=== PATIENT | female | born 1995 | race Caucasian/White ===

== ENCOUNTER → 2019-06-02 13:03 | Outpatient (BNVA) | payer MEDICAID, SELFPAY | PROVIDERS: Visit Provider Obstetrics & Gynecology | DX: O34.42 Maternal care for other abnormalities of cervix, second trimester (principal); R87.619 Unspecified abnormal cytological findings in specimens from cervix uteri | CPT/HCPCS: 84315; 87086 ==

== ENCOUNTER → 2019-06-12 10:47 | Outpatient (BNVA) | payer MEDICAID, SELFPAY | PROVIDERS: Visit Provider Obstetrics & Gynecology | DX: O34.42 Maternal care for other abnormalities of cervix, second trimester (principal); N76.0 Acute vaginitis; B96.89 Other specified bacterial agents as the cause of diseases classified elsewhere; R87.621 Atypical squamous cells cannot exclude high grade squamous intraepithelial lesion on cytologic smear of vagina (ASC-H) | CPT/HCPCS: 81003; 87491; 87591 ==

== ENCOUNTER → 2019-06-13 09:11 | Outpatient (BNVA) | payer MEDICAID, SELFPAY | PROVIDERS: Visit Provider Obstetrics & Gynecology | DX: R87.620 Atypical squamous cells of undetermined significance on cytologic smear of vagina (ASC-US) (principal) | CPT/HCPCS: 88305 ==

== ENCOUNTER → 2019-06-19 12:54 | Outpatient (BNVA) | payer MEDICAID, SELFPAY | PROVIDERS: Visit Provider Obstetrics & Gynecology | DX: Z01.89 Encounter for other specified special examinations (principal) | CPT/HCPCS: 81000; 84315 ==

== ENCOUNTER → 2019-07-11 14:22 | Outpatient (BNVA) | payer MEDICAID, SELFPAY | PROVIDERS: Visit Provider Obstetrics & Gynecology | DX: Z34.02 Encounter for supervision of normal first pregnancy, second trimester (principal); N89.8 Other specified noninflammatory disorders of vagina | CPT/HCPCS: 82950; 84315; 87491; 87591 ==

== ENCOUNTER → 2019-08-07 14:06 | Outpatient (BNVA) | payer MEDICAID, SELFPAY | PROVIDERS: Visit Provider Obstetrics & Gynecology | DX: Z01.89 Encounter for other specified special examinations (principal) | CPT/HCPCS: 84315 ==

== ENCOUNTER → 2019-08-11 08:19 | Outpatient (BNVA) | payer MEDICAID, SELFPAY | PROVIDERS: Visit Provider Obstetrics & Gynecology | DX: O99.810 Abnormal glucose complicating pregnancy (principal) | CPT/HCPCS: 82951; 82952; 85027 ==

== ENCOUNTER → 2019-08-22 09:17 | Outpatient (BNVA) | payer MEDICAID, SELFPAY | PROVIDERS: Visit Provider Obstetrics & Gynecology | DX: Z01.89 Encounter for other specified special examinations (principal) | CPT/HCPCS: 84315 ==

== ENCOUNTER → 2019-09-03 09:45 | Outpatient (BNVA) | payer MEDICAID, SELFPAY | PROVIDERS: Visit Provider Obstetrics & Gynecology Female Pelvic Medicine and Reconstructive Surgery | DX: Z01.89 Encounter for other specified special examinations (principal) | CPT/HCPCS: 84315 ==

== ENCOUNTER 2019-09-17 13:55 | Outpatient (CLI) | payer MEDICAID, SELFPAY ==
[2019-09-17] VITALS (15 sets, daily range): BP systolic 80–107; BP diastolic 39–60; PULSE 109–125; RESP 19; TEMP 37.1–38.1; O2SAT 96–100; BMI 26.5
[2019-09-17] MEDS: sodium chloride 0.9% 1,000 ML 999 ML IV (15:55)
[2019-09-17 16:08] LABS: Hematocrit 37.2 % (37.0-47.0); Hemoglobin 12.5 g/dL (11.5-15.3); Mean Corpuscular HGB Conc 33.6 g/dL (30.0-36.0); Mean Corpuscular Volume 98.2 fL (81-99); Mean Platelet Volume 10.9 fL (7.4-10.4); Platelet Count 159 10^3/cmm (130-400); Red Blood Count 3.79 10^6/uL (4.1-5.3); Red Cell Distribution Width 13.1 % (12.1-15.1); White Blood Count 10.8 10^3/uL (4.0-10.0)
--- NOTE | 2019-09-17 16:16 | PC.NURSE ---
1405 Pt arrived on OB floor via ambulation. Pt was wearing a surgical mask. Pt ambulated to 200-1. Pt oriented to room. Assessment completed.
--- NOTE | 2019-09-17 16:28 | PC.NURSE ---
1555- Med administration Medication started at this time. Patient verified by wristband. Computer not taken in to room.
--- NOTE | 2019-09-17 16:44 | PC.NURSE ---
1505- OBIX OBIX not monitoring on central strip until this time. Paper tracing obtained from [id number].
[2019-09-17 17:32] LABS: Absolute Segmented Neutrophil 9.3 10/cmm (1.6-7.1); Lymphocytes 8 %; Monocytes Absolute 0.5 10^3/cmm (0.1-0.6); Segmented Neutrophils 87 %; Total Cells Counted 100 (0-100)
[2019-09-17 21:59] LABS: Platelet Estimate Decreased (Normal)
== END 2019-09-17 18:03 | disposition home or self-care (01) ==
LOC: OPOB 13:59 → OBGYN 17:57
PROVIDERS: Visit Provider Obstetrics & Gynecology
DX: O36.8390 Maternal care for abnormalities of the fetal heart rate or rhythm, unspecified trimester, not applicable or unspecified (principal); Z3A.00 Weeks of gestation of pregnancy not specified
CPT/HCPCS: 36415; 59025; 84315; 85007; 85027; 87635; 99211; J7030

== ENCOUNTER 2019-09-22 23:00 | Observation (INO) | payer MEDICAID, SELFPAY ==
[2019-09-22] VITALS (45 sets, daily range): BP systolic 0–103; BP diastolic 0–65; PULSE 85–124; RESP 18; TEMP 36.6–36.8; O2SAT 87–98; BMI 27.2
[2019-09-22] MEDS: lactated ringers 500 ML 999 ML IV (19:29)
[2019-09-22 19:59] LABS: Bacteria Urine 2+; Bilirubin Urine 1+ (NEGATIVE); Blood Urine 2+ (Negative); Glucose Urine UA Norm (Normal); Ketones Urine Negative (Negative); Leukocyte Esterase Urine 2+ (Negative); Nitrate Urine Negative (Negative); Protein Urine Neg (Negative); RBC Urine 15-25 /hpf (0-2); Squamous Epithelial Cell Urine 55-80 (0-5); Urine Appearance Hazy (CLEAR); Urine Color Amber (Yellow); Urobilinogen Urine 4 mg/dL (Negative); WBC Urine 40-55 /hpf (0-5); pH Urine 7 (5-7)
[2019-09-22 20:00] LABS: Add Urine Culture? Yes
[2019-09-22] MEDS: terbutaline 1 mg/mL INJ 0.25 MG SUBCUT (20:30)
[2019-09-22] MEDS: HYDROcodone-acetaminophen 5-325 mg Tablet 1 TAB PO (20:39)
[2019-09-22] MEDS: lactated ringers 1,000 ML 125 ML IV (20:40)
--- NOTE | 2019-09-22 23:48 | PM.ACPR ---
Procedure/Consent Procedure Narrative: NONSTRESS TEST: Indication: 23-year-old 1 para 0 at 34 weeks and 6 days, contractions rule out labor Baseline: 125 Variability: Moderate Accelerations: Present Decelerations: None Contractions: Every 5-7 minutes INTERPRETATION: NST reactive, continue kick counts, continue NSTs every 4 hours given persistent contractions.
[2019-09-23] VITALS (33 sets, daily range): BP systolic 0–112; BP diastolic 0–62; PULSE 82–118; RESP 18; TEMP 36.5–37.3
[2019-09-23] MEDS: lactated ringers 1,000 ML 125 ML IV ×2 (01:20→09:51)
--- NOTE | 2019-09-23 06:58 | PM.ACPR ---
Procedure/Consent Procedure Narrative: NONSTRESS TEST: Indication: 23-year-old 1 para 0 at 35 weeks gestation, contractions-possible labor Baseline: 140 Variability: Moderate variability Accelerations: Present Decelerations: None Contractions: Irregular every 5-8-patient does not feel them INTERPRETATION: NST reactive, continue kick counts and NSTs
--- NOTE | 2019-09-23 08:34 | PM.DCS ---
Discharge Providers Date of Admission: 09/22/19 23:00 Date of Discharge: August Attending Provider at Admission: Deb Pickett MD Attending Provider at Discharge: Deb Pickett MD Diagnoses at Discharge Discharge Diagnosis (1) contractions: Status: Acute Reason for Visit Reason for Visit: Reason For Visit: pelvic pain Hospital Course Discharge Summary: Ms. Hylton is a 23-year-old 1 para 0 at 34 weeks and 6 days gestation who presented to labor and delivery on 09/22/2019 with reports of pelvic pain and possible contractions. She reported good movement and denied vaginal bleeding and leakage of fluid. On initial evaluation by the nurse she was found to be attached 2 cm, 30% effaced and -3 station and firm. She was baldev every 1 to 2 minutes with a category 1 tracing. IV fluid hydration and p.o. fluid hydration was done however contractions did not . She received a single dose of terbutaline. With this her contractions started spacing out. She continued to have contractions every 5 to 7 minutes but made no further cervical change and as a result decision was made to observe the patient overnight. Overnight NSTs were reactive and contractions continued to space out. In the morning she had no further contractions and felt felt well other than round ligament pain. She did well and repeat cervical exam at 11 PM showed that cervix was unchanged at 22 cm, 30% and -3 station. She was discharged home in a stable condition with labor precautions. She was encouraged to increase p.o. hydration. Discharge Data Vitals: Last Vital Signs Temp 99.2 F 09/23/19 12:45 Pulse 110 H 09/23/19 12:46 Resp 18 09/23/19 05:00 BP 97/51 09/23/19 12:46 Pulse Ox 98 09/22/19 22:34 Discharge Plan Discharge Patient Disposition: Home, Self-Care Prescriptions: Continued PNV cmb#95-ferrous fumarate-FA [] 28 mg iron- 800 mcg Tablet 1 tab PO DAILY RF: 0 Discharge Orders: Discharge Order (Routine); Ordered 09/23/19 Ordered By: Deb Pickett Discharge Activity: Limit activity as instructed Patient Instructions: Labor (GEN), OB Undelivered Discharge, Round Ligament Pain Activity Restrictions/Additional Instructions: Keep regular scheduled appt, follow up sooner if needed. Return soon for regular painful contractions 5min and less, leaking fluid like our water is broke, bright red vaginal bleeding like period bleeding, baby is not moving or any other concerns. Discharge Date/Time: 09/23/19 13:04 Discharge Attestations Time Spent in Discharge Care*: greater than 30 min Specific Discharge Activities: Specific discharge activities: educating patient, educating and/or supporting family/caregiver, documenting/other paperwork and evaluating patient/reviewing data Quality Metrics Clinical Quality Measures During this hospital stay, did patient experience: None Coding Level of Care Code Acute Adult Care Provider for Chg Fwd Diagnoses contractions O47.9
== END 2019-09-23 13:04 | disposition home or self-care (01) ==
LOC: OPOB 23:14 → OBGYN 09-23 07:24
PROVIDERS: Admitting Provider Obstetrics & Gynecology; Visit Provider Obstetrics & Gynecology
DX: O26.899 Other specified pregnancy related conditions, unspecified trimester (principal); Z3A.00 Weeks of gestation of pregnancy not specified; R10.2 Pelvic and perineal pain
CPT/HCPCS: 12345; 59025; 81001; 87086; 96360; 96361; 96372; 99211; G0378; J3105

== ENCOUNTER → 2019-10-03 09:13 | Outpatient (BNVA) | payer MEDICAID, SELFPAY | PROVIDERS: Visit Provider Obstetrics & Gynecology | DX: Z34.90 Encounter for supervision of normal pregnancy, unspecified, unspecified trimester (principal) | CPT/HCPCS: 84315; 87081 ==

== ENCOUNTER → 2019-10-10 11:44 | Outpatient (BNVA) | payer MEDICAID, SELFPAY | PROVIDERS: Visit Provider Obstetrics & Gynecology | DX: Z34.03 Encounter for supervision of normal first pregnancy, third trimester (principal) | CPT/HCPCS: 76816; 84315 ==

== ENCOUNTER 2019-10-11 17:00 | Inpatient (IN) | payer MEDICAID, SELFPAY ==
[2019-10-11] VITALS (27 sets, daily range): BP systolic 0–124; BP diastolic 0–77; PULSE 72–126; RESP 16–18; TEMP 36.6–37.1; BMI 26.3
[2019-10-11 15:51] LABS: Nitrazine Paper, PH Positive
[2019-10-11 16:00] LABS: Actim Prom Positive
[2019-10-11 16:44] LABS: Basophils % 0.2 %; Eosinophils % 0.2 %; Hematocrit 36.8 % (37.0-47.0); Hemoglobin 12.5 g/dL (11.5-15.3); Lymphocytes # 1.9 10^3/uL (0.8-4.8); Mean Corpuscular Hemoglobin 32.1 pg (28.0-34.0); Mean Corpuscular Volume 94.4 fL (81-99); Mean Platelet Volume 10.5 fL (7.4-10.4); Monocytes # 0.8 10^3/uL (0.2-0.9); Monocytes % 6.4 %; Neutrophils # 9.3 10^3/uL (1.8-7.7); Neutrophils % 76.7 %; Nucleated Red Blood Cells % 0 %; Platelet Count 206 10^3/cmm (130-400); Red Cell Distribution Width 12.9 % (12.1-15.1); White Blood Count 12.1 10^3/uL (4.0-10.0)
--- NOTE | 2019-10-11 17:52 | PC.NURSE ---
PT UP TO WALK UNTIL 1830.
[2019-10-11] MEDS: oxytocin 30 UNIT/500 ML BAG IV (18:50)
[2019-10-11] MEDS: dextrose 5%-lactated ringers 1,000 ML 125 ML IV (18:51)
[2019-10-11] MEDS: fentaNYL 50 mcg/mL INJ 2mL IV (21:37)
[2019-10-12] VITALS (215 sets, daily range): BP systolic 0–135; BP diastolic 0–80; PULSE 67–132; RESP 15–18; TEMP 36.8–37.7; O2SAT 94–100
[2019-10-12] MEDS: fentaNYL 50 mcg/mL INJ 2mL IV (00:38)
--- NOTE | 2019-10-12 01:30 | P.ANESASSM_ITS ---
Pre-Anesthetic Assessment Pre-Anesthetic Assessment: Height/Weight: Height 1.7 m Weight 76.204 kg Temp Pulse Resp BP Pulse Ox 98.9 F 81 17 95/50 97 10/12/19 00:43 10/12/19 02:22 10/12/19 00:43 10/12/19 02:22 10/12/19 02:21 Preop Diagnosis: IUP Proposed Procedure: labor epidural Social: Social History: No alcohol and No tobacco Exam: Pre-Anes Outpt Exam: alert, oriented x 3, clear to auscultation bilaterally and regular rate & rhythm Airway: Submandibular: WNL Cervical ROM: WNL MP: 1 Dentition: Chipped History/ROS: No significant history except as noted Pulmonary: Pulmonary: None reported CV/HEM: CV/HEM: None reported : : None reported Hepatic: Hepatic: None reported GI: GI: None reported Metabolic: Metabolic: None reported Musc/skel: Musc/skel: None reported Neuropsych: Neuropsych: None reported Anesthetic Plan: ASA status: 1 Anesthesia: Anesthesia Evaluation Risk of > 500 ml blood loss (7ml/kg in children): No Meds/Allergies Current Medications: Current Medications Generic Name Dose Route Start Last Admin Trade Name Freq PRN Reason Stop Dose Admin Fentanyl 25 - 100 mcg 10/11/19 16:05 10/12/19 00:38 Sublimaze IV 25 mcg Q1H PRN Administration SEVERE PAIN Dextrose/Lactated Ringer's 1,000 mls @ 125 m ls/hr 10/11/19 16:15 10/11/19 18:51 Dextrose 5%-Lact ated Ringers IV 125 mls/hr .Q8H JASWINDER Administration Oxytocin 30 unit in 500 ml s @ 1 mls/hr 10/11/19 18:45 10/11/19 23:05 Pitocin IV 2 milliunit/min .Q24H JASWINDER 2 mls/hr Titration Protocol 1 MILLIUNIT/MIN Lactated Ringer's 1,000 mls @ 999 m ls/hr 10/12/19 00:32 10/12/19 02:19 Lactated Ringers IV 999 mls/hr .Q1H1M PRN Administration ANESTHESIA Ropivacaine 200 mg in 100 mls @ 13 mls/hr 10/12/19 00:32 10/12/19 02:16 Naropin Premix EPIDURAL 13 mls/hr .Q7H42M PRN Administration ANESTHESIA PFSH Anesthesia PFSH: Medical History (Updated 10/11/19 @ 00:01 by ) Chlamydia infection affecting in first trimester 04/18/2019 (12 weeks): Positive for chlamydia. Treated on 04/22/2019 with azithromycin. 05/13/2019 (16 weeks): Test of cure: Negative. Surgical History No significant past surgical history Family History Grandmother Diabetes Paternal and maternal Thyroid condition paternal Social History (Updated 10/10/19 @ 09:21 by Renée Bolanos RN) Smoking and tobacco status: never smoked Alcohol intake: never Female Reproductive History: Date of last menstrual period: 01/21/19 : 1 Data Anesthesia CBC & Chem 7: 10/11/19 16:15 Other Labs: Laboratory Results - last 48 hr 10/11/19 10/11/19 15:05 16:15 WBC 12.1 H RBC 3.90 L Hgb 12.5 Hct 36.8 L MCV 94.4 MCH 32.1 MCHC 34.0 RDW 12.9 Plt Count 206 MPV 10.5 H Neut % (Auto) 76.7 Lymph % (Auto) 16.0 [place] % (Auto) 6.4 Eos % (Auto) 0.2 Baso % (Auto) 0.2 Neut # (Auto) 9.3 H Lymph # (Auto) 1.9 [place] # (Auto) 0.8 Eos # (Auto) 0.0 Baso # (Auto) 0.0 Nucleated RBC % (auto) 0 Nucleated RBCs # 0.0 Insulin-like GF I Positive Cardiac Studies: No Data to Display
[2019-10-12] MEDS: lactated ringers 1,000 ML 999 ML IV ×3 (01:39→14:36)
--- NOTE | 2019-10-12 02:15 | ANES.PROC ---
Anesthesia Procedures Procedure/Date: 10/12/19 Procedure Narrative: ephedrine 15mg IVP and 35mg L thigh for BP 85/50. baby showing no distress Epidural: Time Out Performed: Yes Consents Signed: Procedure Consent Consent: requested by attending/covering physician Lumbar Level: L3-L4 Epidural position: sitting Epidural procedure: sterile prep of area, 1% lidocaine to numb the area, 18 g needle, negative for paresthesia passed, neg for paresthesia, test dose given, 1.5% xylocaine 1:200k epi (5ml), placed PCEA, no systemic response, sterile dressing applied, L.U.D. no apparent complications and 0.2% Ropiavacaine @ mls/hr (13)
[2019-10-12] MEDS: dextrose 5%-lactated ringers 1,000 ML 125 ML IV ×3 (08:34→20:15)
--- NOTE | 2019-10-12 09:59 | ANES.PROC ---
Anesthesia Procedures Procedure/Date: 10/12/19 Other Information: Patient having pain in R Lower quadrant. Bolused with bupivicaine 0.25% 7 cc, with some improvement. Instructed patient to lay on her right side.
--- NOTE | 2019-10-12 14:00 | PC.NURSE ---
HERIBERTO CORONEL, TREE TRIMMER HELPER CALLED TO EVALUATE EPIDURAL
--- NOTE | 2019-10-12 14:48 | P.ANES_ITS ---
Anesthesia Procedures Procedure/Date: 10/12/19 epidural Procedure Narrative: previous epidural assessed and 2% lidocaine 5 mL PF bolus given with no change(waste 5mL 2% lidocaine). it was decided that the epidural needed replaced after talking with the patient. epidural catheter removed with blue tip intact. redo epidural complete, bolus given, epidural pump initiated with HARDWARE TEST ENGINEER education given, vitals taken during procedure using OBIX system and satisfactory throughout, patient admits to decrease pain, report of procedure to OB RN Epidural: Time Out Performed: Yes Consents Signed: Procedure Consent Consent: requested by attending/covering physician, from patient, risks and benefits reviewed and patient agrees to proceed Lumbar Level: L2-L3 Epidural position: sitting Epidural procedure: sterile prep of area, 1% lidocaine to numb the area (3 mL), 18 g needle, negative for paresthesia passed, neg for paresthesia, test dose given, 1.5% xylocaine 1:200k epi (5 mL), 0.2% Ropivacaine bolus ml (5 mL), placed PCEA, no systemic response, sterile dressing applied, L.U.D. no apparent complications and 0.2% Ropiavacaine @ mls/hr (13 mL/hr)
--- NOTE | 2019-10-12 17:14 | P.PN_ITS ---
Subjective Subjective: Interval history: 24-year-old female EGA 37+5 WEEKS. In active labor Referred having had better days. Vitals/I&O/Wt Last Vital Signs Temp 98.0 F 10/14/19 13:56 Pulse 96 10/14/19 13:56 Resp 16 10/14/19 13:56 BP 113/69 10/14/19 13:56 Pulse Ox 99 10/14/19 13:56 Physical Exam Narrative: EXAM NARRATIVE: GA: Alert and oriented ?3. Lungs: Clear to auscultation bilaterally. Heart: Regular rhythm and rate. Abdomen: Gravid, fundal height correlates dates, nontender. FIELD CROP II FARMWORKER: SVE; dilation: 7 cm, effacement: 90 %, station: 0, presentation: Vertex, membranes: PROM: Clear. Extremities: no edema, no cyanosis, no calves pain. heart tracing: Basal rate: 140s bpm, Variability: Good, Accelerations: Present, Decelerations: Absent, Contractions: Every 4-5 minutes. Urinary Catheter Management^: Singer: Cath Placed During This Visit: yes Urinary Catheter Date of Insertion: 10/12/19 Urinary Catheter Time of Insertion: 02:52 Data : 10/13/19 14:23 A&P Assessment and plan (1) Term : Patient in active labor, pain well under control, anticipate vaginal delivery, heart tracing category 1. Amniotic fluid clear. Status: Acute Attestations Medical Necessity Statement*: My professional opinion for admitting diagnosis. Coding Level of Care Code Acute Physical Science Professor for Miguel Francisco Diagnoses Term Z34.90
[2019-10-12] MEDS: ondansetron 2 mg/ML SDV 2 mL 4 MG IVP (21:10)
[2019-10-13] VITALS (37 sets, daily range): BP systolic 0–147; BP diastolic 0–103; PULSE 77–120; RESP 16–18; TEMP 36.6–36.9; O2SAT 96–98
[2019-10-13] MEDS: ondansetron 2 mg/ML SDV 2 mL 4 MG IVP (01:45)
--- NOTE | 2019-10-13 02:24 | P.PCNOB_ITS ---
Delivery Note: Date of delivery: October 13, 2019 Pre-delivery diagnoses: Term at 37+6 weeks. Premature rupture of membranes Post-delivery diagnoses: Term delivered. Premature rupture of membranes delivered. Op report anesthesia: Epidural Delivering Physician: Alexander Bone M.D. Estimated blood loss (mL): 300 Pre-Delivery Course: The patient is a 24yo at 39+6 weeks EGA who [place] [facility] [place] [facility]. She She came to labor and delivery with a complaint of possible rupture of membranes. Upon examination premature rupture of membrane was confirmed. Induction of labor was she ate it with oxytocin LMP: 01/21/2019 and an Estimated date of confinement: 10/28/2019 based on LMP CC: She'll membranes. HPI: Received appropriate care. Daily vitamins since start of care. labs have all been normal, including negative for HIV Except for positive chlamydia in the first trimester and treated, and abnormal Pap smear was ASCUS. She was found to Negative for Group B Strep from screening at 36 weeks. She has gained approximately 15 lbs throughout the . She denies a history of HTN during . Glucose tolerance screening for gestational diabetes was negative. Delivery: The patient was noted to be complete and pushing, she so was placed in the dorsal lithotomy position, prepped and draped in the usual sterile fashion for a vaginal delivery. Patient was having late decelerations, and the fetus started with bradycardia. Pt. Noted to have epidural anesthesia. Decision was made to apply outlet vacuum @ 37+6 weeks for the above indications and nonreassuring status. The mother was informed and asked for her consent for application of the vacuum. Adequate anesthesia was confirmed. The edges of the cup of the Kiwi vacuum were placed approximately 3cm from the anterior fontanelle, and just at the edge of the posterior fontanelle. The center of the cup was placed over the flexion point. The edges of the cup were swept with a finger to ensure that no maternal tissues were entrapped. After correct placement of the cup was confirmed, vacuum pressure was raised to 500-600 mmHg. Gentle traction along the axis of the pelvic curve down then up, was applied in concert with maternal pushing. 1 # applications. 0# pop-offs. After head delivered, the vacuum pressure released and was taken off the baby's head. The vertex was delivered vacuum assisted over intact perineum. The patient was asked to push and the head delivered in the LIZ position, over an intact perineum. At 0215 the patient delivered a viable 37+6 weeks fetus weighing 2820 g with scores of 2 and 7 at one and five minutes, respectively. A nuchal cord was checked and none noted. The anterior shoulder delivered easily and the posterior shoulder followed. The remainder of the infant was easily delivered and the oropharynx and nasopharynx was again bulb suctioned. The amniotic fluid following the 's delivery had a strong foul-smelling odor suggestive of chorioamnionitis. The was noted to have spontaneous movement of all four extremities. The cord was clamped x 2 and cut and noted to have 2 arteries and one vein. The was immediately passed to the warmer where Nursing personnel and soils engineer were in attendance. The placenta delivered intact On tenuously and the uterus Was explored. Pitocin 20 units in 1L LR was initiated. Examination of the cervix, vagina and perineal areas were inspected for lacerations and did not reveal any lacerations. A vaginal pack was then placed. Examination of the perineum showed no lacerations. The vaginal pack was then removed. The patient tolerated this procedure well, and recovered in L&D with her infant and send to the OBI sapp. All sponge and needle counts were correct. A&P Assessment and plan (1) Premature rupture of membranes (PROM), delivered: Status: Acute (2) Term delivered: Status: Acute (3) Chorioamnionitis, delivered, current hospitalization: Status: Acute Coding Level of Care Code Acute Summer Intern for [facility] Fw Diagnoses Premature rupture of membranes (PROM), delivered O42.90 Term delivered O80 Chorioamnionitis, delivered, current hospitalization O41.1290
[2019-10-13] MEDS: oxytocin 30 UNIT/500 ML BAG 600 UNIT IV (03:00)
--- NOTE | 2019-10-13 04:56 | PC.NURSE ---
issued 24mm nipple shield to assist infant with latching. infant was able to latch and have a 10 min feed with intermittent suckling and swallowing.
--- NOTE | 2019-10-13 06:02 | PC.NURSE ---
attempted to contact Dr. Bone at 0109 on cell, no answer. Attempted again on cell at 0112, no answer. Attempted home phone at 0113, no answer. Attempted cell at 0115, no answer left voicemail. Attempted home phone at 0116 was able to contact Dr. Bone. Reported repetitive decreases in FHTs with contractions, SVE anterior lip. Received instructions to continue labor.
[2019-10-13] MEDS: acetaminophen 325 mg Tablet 650 MG PO (06:41)
[2019-10-13] MEDS: lanolin oint 7 gm 1 APPLIC TOPICAL (06:43)
[2019-10-13] MEDS: benzocaine-menthol 78 gm Canister 1 SPRAY TOPICAL (06:44)
[2019-10-13] MEDS: prenatal vitamin Capsule 1 CAP PO (08:30)
[2019-10-13] MEDS: docusate sodium 100 mg Capsule PO ×2 (08:30→17:26)
[2019-10-13 14:43] LABS: Hematocrit 34.9 % (37.0-47.0); Hemoglobin 11.8 g/dL (11.5-15.3); Mean Corpuscular HGB Conc 33.8 g/dL (30.0-36.0); Mean Corpuscular Hemoglobin 32.1 pg (28.0-34.0); Mean Corpuscular Volume 94.8 fL (81-99); Mean Platelet Volume 10.7 fL (7.4-10.4); Platelet Count 169 10^3/cmm (130-400); Red Blood Count 3.68 10^6/uL (4.1-5.3); Red Cell Distribution Width 13.1 % (12.1-15.1); White Blood Count 23.6 10^3/uL (4.0-10.0)
[2019-10-14 04:10] VITALS: BP 96/57; PULSE 64; RESP 16; O2SAT 97
--- NOTE | 2019-10-14 07:46 | PM.OBGYDC ---
Discharge Providers CHILDCARE CENTER DIRECTOR Date of Admission: 10/11/19 17:00 Date of Discharge: 10/14/19 Attending Provider at Admission: Alexander Bone MD Attending Provider at Discharge: Alexander Bone MD Diagnoses at Discharge Discharge Diagnosis (1) Status post vacuum-assisted vaginal delivery: Status: Acute (2) Term delivered: Status: Acute (3) Premature rupture of membranes (PROM), delivered: Status: Acute (4) Chorioamnionitis, delivered, current hospitalization: Status: Acute Reason for Visit Reason for Visit: Reason For Visit: possible water break Hospital Course Hospital Course: Patient is a 24-year-old female status post spontaneous vaginal delivery day 1. She came to labor and delivery complaining of premature rupture of membranes at a estimated gestational age of 37+5 weeks. She progressed to have a Vacuum-assisted vaginal delivery of a male 2820 g with scores of 2 and 7 Due to nonreassuring status. At delivery foul smelling amniotic fluid was noted, suggesting chorioamnionitis. recovery and observation was uneventful. She is afebrile and hemodynamically stable tolerating diet well undulating without difficulty. She refers she has not made up her mind which type of contraception she'll be using and will discussed her decision contraception when she return to the clinic for visit. Information Peripartum Data: Delivery Method: Vaginal Physical Exam Narrative: EXAM NARRATIVE: GA; alert and oriented x 3 HEENT: normal Breasts: engorged Nipples - skin intact Lungs; clear to auscultation Heart: regular rhythm, no murmurs. Abd: Appropriately tender. BS+. Uterine fundus below umbilicus. No Fundal Tenderness. Perineum: normal lochia. Extremities: no edema, no cyanosis, no tenderness. Urinary Catheter Management^: Singer: Cath Placed During This Visit: yes Urinary Catheter Date of Insertion: 10/12/19 Urinary Catheter Time of Insertion: 02:52 Discharge Data Data Completed and Pending: Laboratory Tests 10/11/19 16:15 WBC 12.1 H Hgb 12.5 Hct 36.8 L Plt Count 206 Labs from last 24 hours 10/13/19 14:23 WBC 23.6 H RBC 3.68 L Hgb 11.8 Hct 34.9 L MCV 94.8 MCH 32.1 MCHC 33.8 RDW 13.1 Plt Count 169 MPV 10.7 H Vitals: Last Vital Signs Temp 98.2 F 10/13/19 22:00 Pulse 64 10/14/19 04:10 Resp 16 10/14/19 04:10 BP 96/57 10/14/19 04:10 Pulse Ox 97 10/14/19 04:10 Discharge Plan Discharge Patient Disposition: Home, Self-Care Condition: Stable Prescriptions: New ibuprofen 800 mg Tablet 800 mg PO TID Qty: 60 RF: 0 acetaminophen 325 mg Tablet 650 mg PO Q6H PRN (Reason: Mild pain or temp > 100.4) Qty: 60 RF: 0 docusate sodium 100 mg Capsule 100 mg PO BID Qty: 60 RF: 0 Continued PNV cmb#95-ferrous fumarate-FA [] 28 mg iron- 800 mcg Tablet 1 tab PO DAILY RF: 0 Discharge Orders: Discharge Order (Routine); Ordered 10/14/19 Ordered By: Alexander Bone Discharge Diet: Regular Discharge Activity: Increase activity as tolerated Activity Restrictions/Additional Instructions: Pelvic rest for 6 weeks (no sex, no tampons, no vaginal douches). Return to the emergency room if any fever, increased bleeding or pain. Discharge Attestations CHILDCARE CENTER DIRECTOR Time Spent in Discharge Care*: greater than 30 min Specific Discharge Activities: Specific discharge activities: educating patient Coding Level of Care Code Acute Strip Mill Operator for Miguel Francisco Diagnoses Status post vacuum-assisted vaginal delivery Z87.59 Term delivered O80 Premature rupture of membranes (PROM), delivered O42.90 Chorioamnionitis, delivered, current hospitalization O41.1290
[2019-10-14] MEDS: prenatal vitamin Capsule 1 CAP PO (09:04)
[2019-10-14] MEDS: docusate sodium 100 mg Capsule PO (09:04)
[2019-10-14 09:19] VITALS: BP 117/70; PULSE 93; RESP 16; TEMP 36.7; O2SAT 99
[2019-10-14] MEDS: acetaminophen 325 mg Tablet 650 MG PO (13:48)
[2019-10-14 13:53] VITALS: BP 113/69; PULSE 96; RESP 16; TEMP 36.7; O2SAT 99
[2019-10-14 13:56] VITALS: BP 113/69; PULSE 96; RESP 16; TEMP 36.7; O2SAT 99
== END 2019-10-14 13:59 | disposition home or self-care (01) | DRG 805 ==
LOC: OPOB 10-12 02:37 → OBGYN 10-12 02:37
PROVIDERS: Admitting Provider Obstetrics & Gynecology; Visit Provider Obstetrics & Gynecology
DX: O76 Abnormality in fetal heart rate and rhythm complicating labor and delivery (principal); O41.1230 Chorioamnionitis, third trimester, not applicable or unspecified; Z37.0 Single live birth; Z3A.37 37 weeks gestation of pregnancy; O42.92 Full-term premature rupture of membranes, unspecified as to length of time between rupture and onset of labor
CPT/HCPCS: 12345; 36415; 51702; 59025; 59409; 83986; 84112; 85025; 85027; 96374; 96375; 98960; 99211; J2001; J2405; J2795; J3010

== ENCOUNTER → 2019-11-24 10:10 | Outpatient (BNVA) | payer MEDICAID, SELFPAY | PROVIDERS: Visit Provider Obstetrics & Gynecology | DX: Z39.2 Encounter for routine postpartum follow-up (principal); Z30.42 Encounter for surveillance of injectable contraceptive; Z30.9 Encounter for contraceptive management, unspecified | CPT/HCPCS: 81025 ==

== ENCOUNTER 2023-11-02 09:53 | Outpatient (CLI) | payer BC, MEDICAID, SELFPAY | END 2023-11-02 09:54 | disposition home or self-care (01) | PROVIDERS: Visit Provider Nurse Practitioner Family | DX: O46.91 Antepartum hemorrhage, unspecified, first trimester (principal) | CPT/HCPCS: 84702 ==

== ENCOUNTER 2024-09-29 09:18 | Outpatient (CLI) | payer OTHER, SELFPAY ==
[2024-09-29 09:35] VITALS: RESP 15
[2024-09-29 09:36] VITALS: BMI 27.8
[2024-09-29 09:46] VITALS: BP 110/59; PULSE 98
[2024-09-29 09:48] LABS: Bilirubin Urine Neg (Negative); Blood Urine Neg (Negative); Glucose Urine UA Norm (Normal); Ketones Urine Negative (Negative); Leukocyte Esterase Urine 2+ (Negative); Nitrate Urine Negative (Negative); Protein Urine Trace (Negative); UA Manual Slide Review YES; Urine Appearance Slightly Cloudy (CLEAR); Urine Color Yellow (Yellow); Urobilinogen Urine Norm (Negative); pH Urine 7 (5-7)
[2024-09-29 09:52] LABS: Add Urine Culture? No; Bacteria Urine 2+ /hpf; Squamous Epithelial Cell Urine 15-25 /hpf (0-5)
[2024-09-29 10:01] VITALS: BP 116/62; PULSE 89
[2024-09-29 10:16] VITALS: BP 115/64; PULSE 93
== END 2024-09-29 10:35 | disposition home or self-care (01) ==
LOC: OPOB 09:26 → OBGYN 09:26
PROVIDERS: Visit Provider Family Medicine
DX: O26.899 Other specified pregnancy related conditions, unspecified trimester (principal); Z3A.00 Weeks of gestation of pregnancy not specified; N89.8 Other specified noninflammatory disorders of vagina; R10.9 Unspecified abdominal pain; R42 Dizziness and giddiness
CPT/HCPCS: 59025; 81001; 99211

== ENCOUNTER 2024-10-08 09:21 | Inpatient (IN) | payer OTHER, SELFPAY ==
[2024-10-08] VITALS (12 sets, daily range): BP systolic 102–124; BP diastolic 60–73; PULSE 69–120; RESP 16–18; TEMP 36.9; O2SAT 98; BMI 27.7
[2024-10-08] MEDS: ampicillin 2,000 MG in sodium chloride 0.9% (plus) 50 ML 100 MG IV (09:22)
[2024-10-08] MEDS: betamethasone susp 6 mg/mL 5 mL 12 MG IM (09:23)
[2024-10-08] MEDS: NIFEdipine 10 mg Capsule 20 MG PO (09:24)
[2024-10-08 09:29] LABS: Basophils % 0.2 %; Eosinophils % 0.3 %; Hematocrit 35.2 % (36-47); Lymphocytes # 1.2 10^3/uL (0.8-4.8); Lymphocytes % 8.2 %; Mean Corpuscular Hemoglobin 30.6 pg (27-33); Mean Corpuscular Volume 92.9 fl (85-98); Mean Platelet Volume 10.6 fL (7.4-10.4); Monocytes # 0.8 10^3/uL (0.2-0.9); Monocytes % 5.5 %; Neutrophils # 12.26 10^3/uL (1.8-7.7); Neutrophils % 85.2 %; Nucleated Red Blood Cells % 0 %; Platelet Count 186 10^3/cmm (157-399); Red Blood Count 3.79 10^6/uL (3.85-5.65); Red Cell Distribution Width 13.2 % (12.1-15.1); White Blood Count 14.38 10^3/uL (3.29-11.43)
[2024-10-08] MEDS: oxytocin 30 UNIT/500 ML BAG 600 UNIT IV (09:53)
--- NOTE | 2024-10-08 09:59 | PM.OPHPUD ---
Labor & Delivery H&P Update Date of Procedure: October 08, 2024 Date H&P Performed: 10/07/24 Changes to previous documentation: The patient is an active labor with cervical change. Her cervix is dilated to 4 cm on admission to the hospital Admission Diagnosis: 29-year-old 3 para 1-0-1-1 at 34 weeks and 1 day estimated gestational age presenting in active labor Other information: The patient is an otherwise health 34-week female who presented to the hospital complaining of contractions. She was checked and found to be 4 cm dilated with a bulging bag of water. She complained of some back pain yesterday and even some pinkish discharge vaginally. She had sex the day prior. She did not complain of contractions or significant vaginal pressure at that time. This morning she arrived to the hospital complaining of contractions. States that they been going on since earlier this morning. Her membranes were noted be intact. She had consistent care during her . Her blood type was a positive. Her antibody screen was negative. She was positive for marijuana. She tested positive for for chlamydia. She and her partner were treated. A posttest was found to be negative. She passed her glucose screen. She is rubella immune. The remainder of her infectious disease profile is within normal limits. Related Problem List Diagnoses (1) 34 weeks gestation of : (2) labor in third trimester: (3) History of chlamydia: A&P Assessment and plan (1) 34 weeks gestation of : Procardia, ampicillin, and betamethasone ordered. GBS swab was not obtained prior to antibiotics being given. Status: Acute (2) labor in third trimester: Status: Acute (3) History of chlamydia: History of chlamydia during her . Treated and tested negative posttreatment. A follow-up test was planned at 36 weeks. Obviously that did not happen. Status: Acute PDMP PDMP Reviewed: Not Reviewed
--- NOTE | 2024-10-08 10:06 | PM.DELIVERY ---
Delivery Note: Date of delivery: October 08, 2024 Pre-delivery diagnoses: 29-year-old 3 para 1-0-0-1 at 34 weeks presenting in active labor Post-delivery diagnoses: Status post spontaneous vaginal delivery Procedure: Spontaneous vaginal delivery Delivering Physician: Octavio Woo Estimated blood loss (mL): 50 Pre-Delivery Course: The patient presented to the hospital in active labor. Due to her gestational age, betamethasone was given, GBS status was unknown so GBS protocol was initiated. Procardia was also ordered. The patient continued to progress and was noted to be complete with a bulging bag of water shortly after arriving at the hospital. An amniotomy was performed. Delivery: DELIVERY: The patient progressed to complete without difficulty. She delivered a female with a weight of [] with Apgars of 8, 8. The baby was delivered from the LIZ position. and placed on the mother's abdomen the baby was vigorous and crying so we waited 1 minute before clamping and cutting the cord. There was no nuchal cord. There was no meconium. The placenta and 3 vessel cord were delivered intact shortly thereafter. The perineum and vaginal vault were carefully examined. No lacerations were noted. Both the mother and the baby were in stable condition. Post-Delivery Status: Good History History History 3 Term 1 0 Miscarriages/Ectopic 1 Living Children 1 A&P Assessment and plan (1) Vaginal delivery: PDMP PDMP Reviewed: Not Reviewed Coding Level of Care Code Acute Code for Chg Fwd Diagnoses Vaginal delivery O80
--- NOTE | 2024-10-08 10:58 | PM.OBGYDC ---
Discharge Providers [employer] Date of Admission: 10/08/24 09:21 Date of Discharge: 10/18/24 Attending Provider at Admission: Octavio Woo MD Attending Provider at Discharge: Octavio Woo MD Diagnoses at Discharge Discharge Diagnosis (1) Vaginal delivery: Status: Resolved Reason for Visit Reason for Visit: CTX Hospital Course Hospital Course The patient is a 34-week female who presented to the hospital in active labor. Due to her gestational age, she was given betamethasone and started on group B strep protocol. We were also preparing to give her dose of Procardia, but she progressed quickly and had a baby fairly soon after arriving at the hospital. Her delivery was unremarkable. Her course was also unremarkable. Due to the baby being shipped because of gestational age, we expedited the mother's discharge as well. Postdelivery she had minimal bleeding. Her pain was well-controlled. There were no concerns. Physical Exam Narrative: The patient is alert. She appears comfortable. Her heart has a regular rate and rhythm with no murmurs appreciated. Lungs are clear to auscultation bilaterally. Her fundus is firm and below the umbilicus. History History History 3 Term 1 0 Miscarriages/Ectopic 1 Living Children 1 Discharge Data Studies Completed and Pending Laboratory Results WBC 14.38 10^3/uL (3.29-11.43) H 10/08/24 09:09 RBC 3.79 10^6/uL (3.85-5.65) L 10/08/24 09:09 Hgb 11.60 g/dL (11.27-16.99) 10/08/24 09:09 Hct 35.2 % (36-47) L 10/08/24 09:09 MCV 92.9 fl (85-98) 10/08/24 09:09 MCH 30.6 pg (27-33) 10/08/24 09:09 MCHC 33.0 g/dL (30-55) 10/08/24 09:09 RDW 13.2 % (12.1-15.1) 10/08/24 09:09 Plt Count 186 10^3/cmm (157-399) 10/08/24 09:09 MPV 10.6 fL (7.4-10.4) H 10/08/24 09:09 Neut % (Auto) 85.2 % 10/08/24 09:09 Lymph % (Auto) 8.2 % 10/08/24 09:09 Sutter % (Auto) 5.5 % 10/08/24 09:09 Eos % (Auto) 0.3 % 10/08/24 09:09 Baso % (Auto) 0.2 % 10/08/24 09:09 Neut # (Auto) 12.26 10^3/uL (1.8-7.7) H 10/08/24 09:09 Lymph # (Auto) 1.2 10^3/uL (0.8-4.8) 10/08/24 09:09 Sutter # (Auto) 0.8 10^3/uL (0.2-0.9) 10/08/24 09:09 Eos # (Auto) 0.0 10^3/uL (0.0-0.8) 10/08/24 09:09 Baso # (Auto) 0.0 10^3/uL (0.0-0.1) 10/08/24 09:09 Nucleated RBC % (auto) 0 % 10/08/24 09:09 Nucleated RBCs # 0.0 /100WBC 10/08/24 09:09 Blood Type A Positive 10/08/24 09:09 Rho(D) Type Rh positive 10/08/24 09:09 Antibody Screen Negative 10/08/24 09:09 Vitals Last Vital Signs Pulse 101 H 10/08/24 10:45 BP 105/61 10/08/24 10:45 Results Labs OB ([facility]): Blood Type A Positive 10/08/24 Antibody Screen Negative 10/08/24 Hct, (36-47) 35.4 % L 10/08/24 Hgb, (11.27-16.99) 11.80 g/dL 10/08/24 Rho(D) Type Rh positive 10/08/24 Plt Count, (157-399) 214 10^3/cmm 10/08/24 Ser , Semi-Qnt 5.60 mIU/mL 11/02/23 Discharge Plan Discharge Patient Disposition: Home Condition: Stable Prescriptions: New ibuprofen 800 mg tablet 800 mg PO Q8H PRN (Reason: pain) Qty: 30 0RF Continued prenat vit-iron [id number] 95-1-50 mg Capsule 1 cap PO DAILY Discharge Orders: Discharge Order (Routine); Ordered 10/08/24 Ordered By: Octavio Woo Referrals: Octavio Woo MD [Physician, Family Practice] - 11/18/24 11:00 am Discharge Diet: Usual diet Discharge Activity: Limit activity as instructed Patient Instructions: Depression (DC), Preeclampsia and Eclampsia After Delivery (GEN), Hemorrhage (DC), OB Discharge Report, OB Food/Drug Interaction Guide, OB Care at Home, Opioid Safety, OB Vaginal Deliveries, Abnormal Bleeding Discharge Attestations [employer] Time Spent in Discharge Care*: less than 30 min Coding Level of Care Code Acute Code for Chg Fwd Diagnoses Vaginal delivery O80
[2024-10-08 14:04] LABS: Hematocrit 35.4 % (36-47); Mean Corpuscular HGB Conc 33.3 g/dL (30-55); Mean Corpuscular Hemoglobin 30.1 pg (27-33); Mean Corpuscular Volume 90.3 fl (85-98); Mean Platelet Volume 10.5 fL (7.4-10.4); Platelet Count 214 10^3/cmm (157-399); Red Blood Count 3.92 10^6/uL (3.85-5.65); Red Cell Distribution Width 12.8 % (12.1-15.1); White Blood Count 25.73 10^3/uL (3.29-11.43)
== END 2024-10-08 15:15 | disposition home or self-care (01) | DRG 807 ==
LOC: OPOB 09:21 → OBGYN 09:21
PROVIDERS: Admitting Provider Family Medicine; Visit Provider Family Medicine
DX: O60.14X0 Preterm labor third trimester with preterm delivery third trimester, not applicable or unspecified (principal); Z37.0 Single live birth; Z3A.34 34 weeks gestation of pregnancy
CPT/HCPCS: 59409; 85025; 85027; 86850; 86900; 96372; J0290; J0702; J2590; J9999

== ENCOUNTER 2025-03-20 11:34 | Outpatient (CLI) | payer OTHER, SELFPAY | END 2025-03-20 11:35 | disposition home or self-care (01) | LOC: SPT 11:35 | PROVIDERS: Visit Provider Orthopaedic Surgery | DX: Z46.89 Encounter for fitting and adjustment of other specified devices (principal); S52.601D Unspecified fracture of lower end of right ulna, subsequent encounter for closed fracture with routine healing; X58.XXXD Exposure to other specified factors, subsequent encounter | CPT/HCPCS: L3982 ==

== ENCOUNTER → 2025-04-10 10:52 | Outpatient (BNVA) | payer BC, MEDICAID, SELFPAY | PROVIDERS: Visit Provider Orthopaedic Surgery | DX: M25.531 Pain in right wrist (principal) | CPT/HCPCS: 73110 ==

== ENCOUNTER 2025-04-29 11:03 | Outpatient (CLI) | payer OTHER, SELFPAY ==
--- NOTE | 2025-04-29 11:00 | MR_ITS ---
WS: [id number] MRI RIGHT WRIST WITHOUT CONTRAST. COMPARISON: Radiograph 04/10/2025 Multiplanar, multisequence imaging is performed without contrast. Small amount of intermediate signal in the distal ulna extending into the ulnar styloid. There is no fluid in the distal radial ulnar joint. Abnormal fluid like signal distal to the ulnar styloid in the region of the ulnar collateral ligament and the meniscal homologue. Intermediate signal extends into the ulnar portion of the TFCC (ulnar triquetral ligament contains increased signal). There is also thickening with increased signal within a short segment of the extensor carpi ulnaris at the level of the ulnar styloid and TFCC. The main body of the TFCC is intact. Scapholunate ligament is intact. Normal alignment of the carpal rows. Normal appearance of the distal radius. MR/MR wrist RT wo con* [id number] IMPRESSION: 1. Minimal signal abnormalities in the distal ulna at the styloid. Probably re presents a healing marrow injury. No fracture identified. 2. Signal abnormality noted in the region of the ulnar collateral ligament and the meniscal homologue suspicious for partial tears. 3. Extensor carpi ulnaris tendon is also abnormal distal to the ulnar styloid consistent with a partial tear and tendinopathy. There is no full-thickness tea r or retraction. 4. No fluid extending into the distal radial ulnar joint.
== END 2025-04-29 11:04 | disposition home or self-care (01) ==
LOC: RAD 11:03
PROVIDERS: Visit Provider Orthopaedic Surgery
DX: S62.101A Fracture of unspecified carpal bone, right wrist, initial encounter for closed fracture (principal); X58.XXXA Exposure to other specified factors, initial encounter
CPT/HCPCS: 73221